=== PATIENT | female | born 1955 | race Caucasian/White ===

== ENCOUNTER → 2017-12-08 | Outpatient (CLI) | payer OTHER ==
[2017-12-08 09:48] LABS: ALANINE AMINOTRANSFERASE 44 U/L (12-78); CHLORIDE 106 mmol/L (98-107); CHOLESTEROL, TOTAL 148 mg/dL (140-239); CREATININE 0.78 mg/dL (0.55-1.02)
[2017-12-08 09:53] LABS: ALBUMIN 3.9 g/dL (3.4-5.0); ALKALINE PHOSPHATASE 89 U/L (45-117); ANION GAP 6 mmol/L (5-15); BILIRUBIN,TOTAL 0.9 mg/dL (0.2-1.0); CALCIUM 9.2 mg/dL (8.5-10.1); CHOL/HDL RATIO 2.3; HDL CHOL % 43 % (28-40); HDL CHOLESTEROL (DIRECT) 64 mg/dL (40-60); TOTAL PROTEIN 7.8 g/dL (6.4-8.2)
[2017-12-08 09:54] LABS: LDL CHOLESTEROL,CALCULATED 53 mg/dL (54-169); LDL/HDL RATIO 0.8 (0.5-3.0); TRIGLYCERIDES 153 mg/dL (50-200); VLDL CHOLESTEROL 31 mg/dL (0-25)
[2017-12-08 10:01] LABS: HEMOGLOBIN A1C 8.5 % (4.2-6.3)
== END | disposition home or self-care (01) ==
LOC: LAB 09:22
PROVIDERS: ATTEND Family Medicine
DX: E11.69 Type 2 diabetes mellitus with other specified complication (principal)
CPT/HCPCS: 36415; 80053; 80061; 82043; 83036

== ENCOUNTER → 2018-02-05 | Outpatient (CLI) | payer OTHER ==
[2018-02-05 10:45] LABS: HEMOGLOBIN A1C 8.7 % (4.2-6.3)
[2018-02-05 13:19] LABS: ALBUMIN 3.8 g/dL (3.4-5.0); CALCIUM 9.1 mg/dL (8.5-10.1); CHLORIDE 106 mmol/L (98-107)
[2018-02-05 13:24] LABS: ALANINE AMINOTRANSFERASE 42 U/L (12-78); ALKALINE PHOSPHATASE 77 U/L (45-117); ANION GAP 9 mmol/L (5-15); BILIRUBIN,TOTAL 0.9 mg/dL (0.2-1.0); CHOL/HDL RATIO 2.8; CHOLESTEROL, TOTAL 167 mg/dL (140-239); CREATININE 0.66 mg/dL (0.55-1.02); HDL CHOL % 36 % (28-40); HDL CHOLESTEROL (DIRECT) 60 mg/dL (40-60); LDL CHOLESTEROL,CALCULATED 71 mg/dL (54-169); LDL/HDL RATIO 1.2 (0.5-3.0); TOTAL PROTEIN 7.9 g/dL (6.4-8.2); TRIGLYCERIDES 180 mg/dL (50-200); VLDL CHOLESTEROL 36 mg/dL (0-25)
== END | disposition home or self-care (01) ==
LOC: LAB 08:50
PROVIDERS: ATTEND Family Medicine
DX: E11.69 Type 2 diabetes mellitus with other specified complication (principal)
CPT/HCPCS: 36415; 80053; 80061; 82043; 83036

== ENCOUNTER → 2018-05-04 | Outpatient (CLI) | payer OTHER ==
[2018-05-04 09:11] LABS: ALANINE AMINOTRANSFERASE 46 U/L (12-78); ALBUMIN 4.1 g/dL (3.4-5.0); ANION GAP 7 mmol/L (5-15); CALCIUM 9.7 mg/dL (8.5-10.1); CHLORIDE 106 mmol/L (98-107); CHOLESTEROL, TOTAL 150 mg/dL (140-239); CREATININE 0.84 mg/dL (0.55-1.02)
[2018-05-04 09:13] LABS: ALKALINE PHOSPHATASE 92 U/L (45-117); BILIRUBIN,TOTAL 0.8 mg/dL (0.2-1.0); CHOL/HDL RATIO 2.5; HDL CHOL % 40 % (28-40); HDL CHOLESTEROL (DIRECT) 60 mg/dL (40-60); LDL CHOLESTEROL,CALCULATED 46 mg/dL (54-169); LDL/HDL RATIO 0.8 (0.5-3.0); TOTAL PROTEIN 8.5 g/dL (6.4-8.2); TRIGLYCERIDES 218 mg/dL (50-200); VLDL CHOLESTEROL 44 mg/dL (0-25)
[2018-05-04 10:39] LABS: HEMOGLOBIN A1C 7.1 % (4.2-6.3)
== END | disposition home or self-care (01) ==
LOC: LAB 08:39
PROVIDERS: ATTEND Family Medicine
DX: E11.69 Type 2 diabetes mellitus with other specified complication (principal)
CPT/HCPCS: 36415; 80053; 80061; 82043; 83036

== ENCOUNTER → 2018-06-29 | Outpatient (CLI) | payer OTHER ==
[~2018-06-29] MED LIST: ATOR10TA9 PO; CELE200C PO; GLIM4TAB2 PO; LISI-167 PO; METF500T17 PO; TIZA4CAP PO; TRAM50TA2 PO
[2018-06-29 10:28] LABS: ANION GAP 7 mmol/L (5-15); CALCIUM 9.6 mg/dL (8.5-10.1); CHLORIDE 106 mmol/L (98-107)
[2018-06-29 10:31] LABS: ALANINE AMINOTRANSFERASE 41 U/L (12-78); ALKALINE PHOSPHATASE 92 U/L (45-117); BILIRUBIN,TOTAL 0.9 mg/dL (0.2-1.0); CHOL/HDL RATIO 2.3; CHOLESTEROL, TOTAL 137 mg/dL (140-239); CREATININE 0.71 mg/dL (0.55-1.02); HDL CHOL % 43 % (28-40); HDL CHOLESTEROL (DIRECT) 59 mg/dL (40-60); LDL CHOLESTEROL,CALCULATED 39 mg/dL (54-169); LDL/HDL RATIO 0.7 (0.5-3.0); TOTAL PROTEIN 8.1 g/dL (6.4-8.2); TRIGLYCERIDES 195 mg/dL (50-200); VLDL CHOLESTEROL 39 mg/dL (0-25)
[2018-06-29 10:33] LABS: HEMOGLOBIN A1C 7.5 % (4.2-6.3)
== END | disposition home or self-care (01) ==
LOC: LAB 09:52
PROVIDERS: ATTEND Family Medicine
DX: E11.69 Type 2 diabetes mellitus with other specified complication (principal)
CPT/HCPCS: 36415; 80053; 80061; 82043; 83036

== ENCOUNTER → 2018-07-04 | Outpatient (CLI) | payer OTHER ==
[2018-07-04 10:23] LABS: MICROSCOPIC NOT IND
[2018-07-04 10:28] LABS: BASOPHILS # (AUTO) 0.03 x10^3/uL (0-0.1); BASOPHILS % (AUTO) 0 % (0-1); EOSINOPHILS % (AUTO) 6 % (1-7); LYMPHOCYTES # (AUTO) 2.09 x10^3/uL (1-3.4); LYMPHOCYTES % (AUTO) 26 % (22-44); MD NO; MEAN CORPUSCULAR HEMOGLOBIN 31.8 pg (27.0-34.8); MEAN CORPUSCULAR HGB CONC 34.3 g/dL (32.4-35.8); MEAN CORPUSCULAR VOLUME 92.6 fL (80-100); MEAN PLATELET VOLUME 7.4 fL (7.4-10.4); MONOCYTES # (AUTO) 0.57 x10^3/uL (0.2-0.8); MONOCYTES % (AUTO) 7 % (2-9); NEUTROPHILS # (AUTO) 4.95 x10^3/uL (1.8-6.8); NEUTROPHILS % (AUTO) 61 % (42-75); PLATELET COUNT 295 x10^3/uL (130-400); RED BLOOD COUNT 5.08 x10^6/uL (3.82-5.3); RED CELL DISTRIBUTION WIDTH 12.4 % (9.6-15.2)
[2018-07-04 10:28] LABS: CULTURE INDICATED? NO
[2018-07-04 10:33] LABS: INTERNATIONAL NORMALIZED RATIO 0.99 (0.93-1.1); PROTHROMBIN TIME 10.4 Seconds (9.6-11.5)
[2018-07-04 10:37] LABS: ALANINE AMINOTRANSFERASE 41 U/L (12-78); ANION GAP 6 mmol/L (5-15); CHLORIDE 103 mmol/L (98-107)
[2018-07-04 10:40] LABS: ALKALINE PHOSPHATASE 94 U/L (45-117); BILIRUBIN,TOTAL 0.9 mg/dL (0.2-1.0); CREATININE 0.72 mg/dL (0.55-1.02)
== END | disposition home or self-care (01) ==
LOC: STAR 08:55
PROVIDERS: ATTEND Orthopaedic Surgery Orthopaedic Surgery of the Spine
DX: Z01.818 Encounter for other preprocedural examination (principal); M48.061 Spinal stenosis, lumbar region without neurogenic claudication
CPT/HCPCS: 36415; 71046; 80053; 81003; 85025; 85610; 85730; 93005

== ENCOUNTER 2018-07-18 06:35 | Inpatient (IN) | payer OTHER ==
[~2018-07-18] VITALS: Ht 170.2 cm; Wt 98.0 kg
[2018-07-18] MEDS ORDERED: LACTATED RINGERS 1,000 ML IV SCH (07:00)
[2018-07-18] MEDS ORDERED: LIDOCAINE-MPF 1%, 2ML INFIL ONE (07:00)
[2018-07-18] MEDS ORDERED: GABAPENTIN 300 MG CAPSULE PO STA (07:01)
[2018-07-18] MEDS ORDERED: SCOPOLAMINE PATCH, 1.5MG PATCH.TD72 TD STA (07:01)
[2018-07-18] MEDS ORDERED: ACETAMINOPHEN 500 MG TABLET PO STA (07:01)
[2018-07-18] MEDS ORDERED: LIDOCAINE-MPF 1%, 2ML ONE (07:06)
[2018-07-18] MEDS ORDERED: MIDAZOLAM 1 MG/ML, 2ML ONE (07:27)
[2018-07-18] MEDS ORDERED: FENTANYL PF 250 MCG/5ML ONE ×3 (07:27→10:14)
[2018-07-18] MEDS ORDERED: PROPOFOL 10 MG/ML, 20ML ONE (07:32)
[2018-07-18] MEDS ORDERED: ONDANSETRON 2MG/ML, 2ML ONE (07:32)
[2018-07-18] MEDS ORDERED: DEXAMETHASONE 4 MG/ML, 1ML ONE (07:32)
[2018-07-18] MEDS ORDERED: CEFAZOLIN 1,000 MG ONE (07:32)
[2018-07-18] MEDS ORDERED: GLYCOPYRROLATE 0.2MG/1ML, 5ML ONE (07:32)
[2018-07-18] MEDS ORDERED: ROCURONIUM 10MG/ML,5ML ONE (07:32)
[2018-07-18] MEDS ORDERED: NEOSTIGMINE 1 MG/ML, 10ML ONE (07:32)
[2018-07-18] MEDS ORDERED: INSULIN REGULAR 100 UNITS/ML, 3ML VIAL IVPush STA (08:09)
[2018-07-18] MEDS ORDERED: MICROFIBRILLAR COLLAGEN 1 GM TP ONE (08:09)
[2018-07-18] MEDS ORDERED: INSULIN SINGLE DOSE, ER SQ-INSULIN ONE ×2 (08:12→09:44)
[2018-07-18] MEDS ORDERED: LIDOCAINE/PF 0.5% ,50ML ONE (08:27)
[2018-07-18] MEDS ORDERED: EPINEPHRINE 1 MG/ML, 1ML ONE (08:27)
[2018-07-18] MEDS ORDERED: THROMBIN 20,000 UNIT VIAL TP ONE (08:27)
[2018-07-18] MEDS ORDERED: BUPIVACAINE/PF 0.25% ONE (08:27)
[2018-07-18] MEDS ORDERED: VANCOMYCIN 500 MG ONE ×2 (08:28→08:38)
[2018-07-18] MEDS ORDERED: VANCOMYCIN 1,000 MG ONE (08:28)
[2018-07-18] MEDS ORDERED: PROMETHAZINE 12.5 MG SUPP PR PRN (08:30)
[2018-07-18] MEDS ORDERED: OXYcodone 5 MG/5 ML ORAL.SOL UDC PO PRN (08:30)
[2018-07-18] MEDS ORDERED: MORPHINE SULFATE 4 MG/ML, 1ML IVPush PRN (08:30)
[2018-07-18] MEDS ORDERED: PROMETHAZINE 25 MG/ML, 1ML IM PRN ×3 (08:30→14:30)
[2018-07-18] MEDS ORDERED: PROMETHAZINE 25 MG SUPP PR PRN (08:30)
[2018-07-18] MEDS ORDERED: ONDANSETRON 2MG/ML, 2ML IV PRN ×2 (08:30→14:30)
[2018-07-18] MEDS ORDERED: PROMETHAZINE 25 MG/ML, 1ML IV PRN (08:30)
[2018-07-18] MEDS ORDERED: hydrALAzine 20 MG/ML, 1ML IV PRN (08:30)
[2018-07-18] MEDS ORDERED: ONDANSETRON ODT 8 MG PO PRN (08:30)
[2018-07-18] MEDS ORDERED: LABETALOL 5MG/ML, 20ML IV PRN (08:30)
[2018-07-18] MEDS ORDERED: MEPERIDINE/PF 25MG/0.5ML IVPush PRN (08:30)
[2018-07-18] MEDS ORDERED: PHENYLEPHRINE 10 MG/ML ONE (08:54)
[2018-07-18] MEDS: FENTANYL PF 100 MCG/2ML IV PRN ×3 (12:19→13:06)
[2018-07-18] MEDS: HYDROmorphone 2 MG/ML, 1ML IVPush PRN ×2 (12:19→12:36)
[2018-07-18] MEDS ORDERED: HYDROmorphone 1 MG/ML, 1ML VIAL ONE (12:21)
[2018-07-18] MEDS ORDERED: FENTANYL PF 100 MCG/2ML ONE (12:21)
[2018-07-18] MEDS ORDERED: OXYcodone 5 MG/5 ML ORAL.SOL UDC ONE (12:21)
[2018-07-18] MEDS ORDERED: METHOCARBAMOL 1,000 MG in DEXTROSE 5% 100 ML IV ONE ×2 (12:30→14:30)
[2018-07-18] MEDS ORDERED: morphine SULFATE 10 MG/ML, 1ML ONE (12:51)
[2018-07-18] MEDS ORDERED: INSULIN REGULAR 100 UNITS/ML, 3ML VIAL SQ-INSULIN ONE (13:00)
[2018-07-18] MEDS ORDERED: MAGNESIUM HYDROXIDE 8%, 30ML UDC PO PRN (14:30)
[2018-07-18] MEDS ORDERED: BISACODYL 10 MG SUPP PR PRN (14:30)
[2018-07-18] MEDS ORDERED: morphine SULFATE 10 MG/ML, 1ML IV PRN (14:30)
[2018-07-18] MEDS ORDERED: METHOCARBAMOL 750 MG TABLET PO PRN (14:30)
[2018-07-18] MEDS ORDERED: HYDROcodone/APAP 5/325 TABLET PO PRN (14:30)
[2018-07-18] MEDS ORDERED: TIZANIDINE 4MG TABLET PO PRN (14:30)
[2018-07-18] MEDS: NS + 20MEQ KCL 1,000 ML IV SCH (17:44)
[2018-07-18] MEDS: CEFAZOLIN PMX 1GM/50ML 50 ML IVPB SCH (17:44)
[2018-07-18] MEDS: metFORMIN 500 MG TABLET PO SCH (17:45)
[2018-07-18] MEDS ORDERED: GLUCAGON 1 MG IM PRN (19:30)
[2018-07-18] MEDS ORDERED: DEXTROSE 50%, 50ML SYRINGE IVPush PRN (19:30)
[2018-07-18] MEDS ORDERED: DEXTROSE 4 GM TAB.CHEW PO PRN (19:30)
[2018-07-18] MEDS ORDERED: GLIMEPIRIDE 4 MG TABLET PO SCH (21:00)
[2018-07-18] MEDS: SODIUM CHLORIDE FLUSH 10ML SYR IVF SCH (21:00)
[2018-07-18 21:55] VITALS: BP 144/86
[2018-07-18] MEDS: METHOCARBAMOL 750 MG in DEXTROSE 5% 100 ML IV SCH (23:12)
[2018-07-18] MEDS: SENNA/DOCUSATE TABLET PO SCH (23:14)
[2018-07-18] MEDS: INSULIN LISPRO 100 UNITS/ML, PEN SQ-INSULIN SCH (23:14)
[2018-07-18] MEDS: ATORVASTATIN 10 MG TABLET PO SCH (23:14)
[2018-07-19] MEDS ORDERED: METHOCARBAMOL 750 MG in DEXTROSE 5% 100 ML IV SCH (00:30)
[2018-07-19] MEDS: CEFAZOLIN PMX 1GM/50ML 50 ML IVPB SCH (01:35)
[2018-07-19 01:40] VITALS: BP 144/68
[2018-07-19 05:20] VITALS: BP 140/79
[2018-07-19] MEDS: NS + 20MEQ KCL 1,000 ML IV SCH ×2 (05:29→15:16)
[2018-07-19 06:18] LABS: BASOPHILS # (AUTO) 0.04 x10^3/uL (0-0.1); BASOPHILS % (AUTO) 0 % (0-1); EOSINOPHILS # (AUTO) 0.05 x10^3/uL (0-0.4); EOSINOPHILS % (AUTO) 0 % (1-7); LYMPHOCYTES # (AUTO) 2.01 x10^3/uL (1-3.4); LYMPHOCYTES % (AUTO) 18 % (22-44); MD NO; MEAN CORPUSCULAR HEMOGLOBIN 31.8 pg (27.0-34.8); MEAN CORPUSCULAR HGB CONC 34.7 g/dL (32.4-35.8); MEAN CORPUSCULAR VOLUME 91.6 fL (80-100); MONOCYTES % (AUTO) 8 % (2-9); NEUTROPHILS # (AUTO) 8.43 x10^3/uL (1.8-6.8); NEUTROPHILS % (AUTO) 74 % (42-75); PLATELET COUNT 284 x10^3/uL (130-400); RED BLOOD COUNT 4.32 x10^6/uL (3.82-5.3); RED CELL DISTRIBUTION WIDTH 12.7 % (9.6-15.2)
[2018-07-19] MEDS: METHOCARBAMOL 750 MG in DEXTROSE 5% 100 ML IV SCH ×3 (06:31→23:16)
[2018-07-19 06:42] LABS: CHLORIDE 107 mmol/L (98-107)
[2018-07-19 06:47] LABS: ALANINE AMINOTRANSFERASE 35 U/L (12-78); ALBUMIN 3.4 g/dL (3.4-5.0); ALKALINE PHOSPHATASE 70 U/L (45-117); ANION GAP 8 mmol/L (5-15); BILIRUBIN,TOTAL 1.1 mg/dL (0.2-1.0); CALCIUM 8.6 mg/dL (8.5-10.1); CREATININE 0.61 mg/dL (0.55-1.02); TOTAL PROTEIN 6.9 g/dL (6.4-8.2)
[2018-07-19] MEDS: INSULIN LISPRO 100 UNITS/ML, PEN SQ-INSULIN SCH ×4 (07:47→20:58)
[2018-07-19] MEDS: metFORMIN 500 MG TABLET PO SCH ×2 (07:47→16:29)
[2018-07-19] MEDS: SODIUM CHLORIDE FLUSH 10ML SYR IVF SCH ×2 (08:18→21:00)
[2018-07-19] MEDS: SENNA/DOCUSATE TABLET PO SCH ×2 (08:18→20:57)
[2018-07-19] MEDS: LISINOPRIL 10 MG TABLET PO SCH (08:18)
[2018-07-19] MEDS ORDERED: LISINOPRIL 10 MG TABLET PO SCH (09:00)
[2018-07-19 09:34] VITALS: BP 133/68
[2018-07-19] MEDS: HYDROcodone/APAP 10/325 MG TABLET PO PRN ×3 (10:55→16:28)
[2018-07-19 13:49] VITALS: BP 117/58
[2018-07-19 19:45] VITALS: BP 133/67
[2018-07-19] MEDS: ATORVASTATIN 10 MG TABLET PO SCH (20:57)
[2018-07-19] MEDS: GLIMEPIRIDE 4 MG TABLET PO SCH (20:57)
[2018-07-20 00:59] VITALS: BP 129/78
[2018-07-20] MEDS: NS + 20MEQ KCL 1,000 ML IV SCH (01:24)
[2018-07-20 05:21] LABS: BASOPHILS # (AUTO) 0.03 x10^3/uL (0-0.1); BASOPHILS % (AUTO) 0 % (0-1); EOSINOPHILS # (AUTO) 0.03 x10^3/uL (0-0.4); EOSINOPHILS % (AUTO) 0 % (1-7); LYMPHOCYTES # (AUTO) 1.67 x10^3/uL (1-3.4); LYMPHOCYTES % (AUTO) 15 % (22-44); MD NO; MEAN CORPUSCULAR HEMOGLOBIN 31.6 pg (27.0-34.8); MEAN CORPUSCULAR HGB CONC 34.3 g/dL (32.4-35.8); MEAN CORPUSCULAR VOLUME 92.2 fL (80-100); MEAN PLATELET VOLUME 6.9 fL (7.4-10.4); MONOCYTES % (AUTO) 8 % (2-9); NEUTROPHILS # (AUTO) 8.63 x10^3/uL (1.8-6.8); NEUTROPHILS % (AUTO) 77 % (42-75); PLATELET COUNT 240 x10^3/uL (130-400); RED BLOOD COUNT 4.11 x10^6/uL (3.82-5.3); RED CELL DISTRIBUTION WIDTH 12.8 % (9.6-15.2)
[2018-07-20 05:28] LABS: CHLORIDE 105 mmol/L (98-107)
[2018-07-20 05:37] LABS: ANION GAP 6 mmol/L (5-15); CALCIUM 8.6 mg/dL (8.5-10.1); CREATININE 0.52 mg/dL (0.55-1.02)
[2018-07-20] MEDS: METHOCARBAMOL 750 MG in DEXTROSE 5% 100 ML IV SCH (06:20)
[2018-07-20] MEDS: SODIUM CHLORIDE FLUSH 10ML SYR IVF SCH (07:53)
[2018-07-20] MEDS: INSULIN LISPRO 100 UNITS/ML, PEN SQ-INSULIN SCH ×2 (07:53→11:16)
[2018-07-20] MEDS: GLIMEPIRIDE 4 MG TABLET PO SCH (07:53)
[2018-07-20] MEDS: LISINOPRIL 10 MG TABLET PO SCH (07:53)
[2018-07-20] MEDS: metFORMIN 500 MG TABLET PO SCH (07:53)
[2018-07-20] MEDS: SENNA/DOCUSATE TABLET PO SCH (07:53)
[2018-07-20 07:55] VITALS: BP 145/70
[2018-07-20 10:54] VITALS: BP 91/53
[2018-07-20] MEDS: HYDROcodone/APAP 10/325 MG TABLET PO PRN (11:15)
[2018-07-20] MEDS ORDERED: METH750T87 PO (13:23)
[2018-07-20] MEDS ORDERED: DOCU-131 PO (13:23)
[2018-07-20] MEDS ORDERED: HYDR-3307 PO (13:24)
[2018-07-21] MEDS ORDERED: METHOCARBAMOL 750 MG TABLET PO SCH (08:00)
== END 2018-07-20 14:53 | DRG 460 ==
LOC: ORIP 06:35 → 4NOR 14:07
PROVIDERS: ADMIT Orthopaedic Surgery Orthopaedic Surgery of the Spine; ATTEND Orthopaedic Surgery Orthopaedic Surgery of the Spine
PROC: 0SR20JZ Replacement of Lumbar Vertebral Disc with Synthetic Substitute, Open Approach (ICD-10-PCS; 2018-07-18)
PROC: 4A11X4G Monitoring of Peripheral Nervous Electrical Activity, Intraoperative, External Approach (ICD-10-PCS; 2018-07-18)
PROC: 0SG10A0 Fusion of 2 or more Lumbar Vertebral Joints with Interbody Fusion Device, Anterior Approach, Anterior Column, Open Approach (ICD-10-PCS; principal; 2018-07-18 08:30)
DX: M48.061 Spinal stenosis, lumbar region without neurogenic claudication (principal); M43.16 Spondylolisthesis, lumbar region; E78.5 Hyperlipidemia, unspecified; E11.42 Type 2 diabetes mellitus with diabetic polyneuropathy; G89.29 Other chronic pain; I10 Essential (primary) hypertension; M41.9 Scoliosis, unspecified; Z90.49 Acquired absence of other specified parts of digestive tract
CPT/HCPCS: 36415; 72100; J3490; 80048; 80053; 82962; 85025; 86850; 86900; C1713; G0378; J0171; J0690; J1100; J1170; J1815; J2001; J2250; J2270; J2405; J2704; J2710; J3010; J3370; J3480; C1762; J2370; J2800; J7120

== ENCOUNTER 2018-07-25 07:11 | Inpatient (IN) | payer OTHER ==
[~2018-07-25] VITALS: Ht 170.2 cm; Wt 99.0 kg
[~2018-07-25 07:11] MED LIST changes: +DEXAMETHASONE 4 MG/ML, 1ML IV SCH; +DOCU-131 PO; +HYDR-3307 PO; +METH750T87 PO
--- NOTE | 2018-07-25 07:11 | NUR ---
ASHLEY from [facility] c/o incr RLE pain x2 days, recent back surg, NPO (no meds/food) for 2nd surg sched today ([facility]) since 2199 last night; arrived with dressing to left lower torso dated 07/24/18 & FC ("inserted 07/24/18 for retention"), EMS admin 100mcg fentanyl via PIV; pt changed into gown, responds approp to staff, NAD at rest, comfort measures provided, call light within reach.
[2018-07-25] MEDS ORDERED: ONDANSETRON 2MG/ML, 2ML IVPush ONE (07:30)
[2018-07-25] MEDS ORDERED: MORPHINE SULFATE 4 MG/ML, 1ML IVPush PRN (07:30)
--- NOTE | 2018-07-25 07:30 | NUR ---
[facility] for dr rothman
[2018-07-25] MEDS ORDERED: ONDANSETRON 2MG/ML, 2ML ONE (07:38)
[2018-07-25] MEDS ORDERED: MORPHINE SULFATE 4 MG/ML, 1ML ONE (07:38)
[2018-07-25] MEDS ORDERED: INSU100I42 SQ (08:01)
--- NOTE | 2018-07-25 08:03 | NUR ---
pt laying on gurney awake & more comfortable, responds approp to staff, NAD at rest, comfort measures provided, call light within reach, pt to XR.
--- NOTE | 2018-07-25 08:14 | NUR ---
pt returned from XR
--- NOTE | 2018-07-25 09:11 | NUR ---
pt returned from US, continues laying on gurney with eyes closed, responds approp to staff, NAD at rest, comfort measures provided, call light within reach.
[2018-07-25 09:30] LABS: BASOPHILS # (AUTO) 0.03 x10^3/uL (0-0.1); BASOPHILS % (AUTO) 0 % (0-1); EOSINOPHILS # (AUTO) 0.17 x10^3/uL (0-0.4); EOSINOPHILS % (AUTO) 2 % (1-7); LYMPHOCYTES # (AUTO) 1.43 x10^3/uL (1-3.4); LYMPHOCYTES % (AUTO) 14 % (22-44); MD NO; MEAN CORPUSCULAR HGB CONC 33.9 g/dL (32.4-35.8); MEAN CORPUSCULAR VOLUME 91.3 fL (80-100); MEAN PLATELET VOLUME 6.2 fL (7.4-10.4); MONOCYTES # (AUTO) 0.47 x10^3/uL (0.2-0.8); MONOCYTES % (AUTO) 5 % (2-9); NEUTROPHILS # (AUTO) 7.89 x10^3/uL (1.8-6.8); NEUTROPHILS % (AUTO) 79 % (42-75); PLATELET COUNT 384 x10^3/uL (130-400); RED CELL DISTRIBUTION WIDTH 12.3 % (9.6-15.2)
[2018-07-25 09:39] LABS: MICROSCOPIC AUTO
[2018-07-25 09:40] LABS: ANION GAP 9 mmol/L (5-15); CHLORIDE 102 mmol/L (98-107); CREATININE 0.34 mg/dL (0.55-1.02)
[2018-07-25 09:43] LABS: CULTURE INDICATED? YES
--- NOTE | 2018-07-25 10:01 | NUR ---
pt laying on gurney awake with c/o discomfort (improved with repositioning), responds approp to staff, NAD at rest, comfort measures provided, call light within reach.
--- NOTE | 2018-07-25 10:36 | NUR ---
Pt to be admitted to medical, room 349. Report called to Cami.
[2018-07-25 11:15] VITALS: BP 145/79
[2018-07-25] MEDS ORDERED: ONDANSETRON ODT 4 MG PO PRN (12:00)
[2018-07-25] MEDS: INSULIN LISPRO 100 UNITS/ML, PEN SQ-INSULIN SCH ×3 (12:00→20:38)
[2018-07-25] MEDS ORDERED: METHOCARBAMOL 500 MG TABLET PO PRN (12:00)
[2018-07-25] MEDS ORDERED: POTASSIUM CHLORIDE 20 MEQ TAB.ER.PRT PO ONE (12:00)
[2018-07-25] MEDS ORDERED: ACETAMINOPHEN 325 MG TABLET PO PRN (12:00)
[2018-07-25] MEDS ORDERED: TIZANIDINE 4MG TABLET PO PRN (12:00)
[2018-07-25] MEDS ORDERED: ONDANSETRON 2MG/ML, 2ML IVPush PRN (12:00)
[2018-07-25] MEDS: morphine SULFATE 10 MG/ML, 1ML IVPush PRN ×3 (12:41→20:29)
[2018-07-25] MEDS: SODIUM CHLORIDE 0.9% 1,000 ML IV SCH (12:42)
[2018-07-25 13:10] LABS: HCT (SEDRATE) 40.2 % (34.6-47.8)
[2018-07-25] MEDS ORDERED: SENNA/DOCUSATE TABLET PO PRN (14:00)
[2018-07-25] MEDS: CEFTRIAXONE PMX 1GM/50ML 50 ML IV SCH (14:36)
[2018-07-25 15:37] VITALS: BP 136/82
[2018-07-25] MEDS: DOCUSATE 100 MG CAPSULE PO SCH ×2 (16:00→20:18)
[2018-07-25] MEDS: METHOCARBAMOL 750 MG in DEXTROSE 5% 100 ML IV SCH (16:08)
[2018-07-25] MEDS: DEXAMETHASONE 4 MG/ML, 1ML IV SCH ×2 (16:19→20:29)
[2018-07-25 20:00] VITALS: BP 145/74
[2018-07-25] MEDS: ATORVASTATIN 10 MG TABLET PO SCH (20:29)
[2018-07-26] MEDS: METHOCARBAMOL 750 MG in DEXTROSE 5% 100 ML IV SCH (00:49)
[2018-07-26] MEDS: SODIUM CHLORIDE 0.9% 1,000 ML IV SCH ×2 (00:49→16:05)
[2018-07-26 02:00] VITALS: BP 142/85
[2018-07-26] MEDS: morphine SULFATE 10 MG/ML, 1ML IVPush PRN ×3 (03:02→23:53)
[2018-07-26] MEDS: DEXAMETHASONE 4 MG/ML, 1ML IV SCH ×4 (04:28→21:09)
[2018-07-26 05:55] LABS: BASOPHILS # (AUTO) 0.01 x10^3/uL (0-0.1); BASOPHILS % (AUTO) 0 % (0-1); EOSINOPHILS % (AUTO) 0 % (1-7); LYMPHOCYTES # (AUTO) 0.75 x10^3/uL (1-3.4); LYMPHOCYTES % (AUTO) 8 % (22-44); MD NO; MEAN CORPUSCULAR HEMOGLOBIN 31.4 pg (27.0-34.8); MEAN CORPUSCULAR HGB CONC 34.1 g/dL (32.4-35.8); MEAN PLATELET VOLUME 6.5 fL (7.4-10.4); MONOCYTES # (AUTO) 0.15 x10^3/uL (0.2-0.8); MONOCYTES % (AUTO) 2 % (2-9); NEUTROPHILS # (AUTO) 8.65 x10^3/uL (1.8-6.8); NEUTROPHILS % (AUTO) 91 % (42-75); PLATELET COUNT 444 x10^3/uL (130-400); RED BLOOD COUNT 4.33 x10^6/uL (3.82-5.3); RED CELL DISTRIBUTION WIDTH 12.2 % (9.6-15.2)
[2018-07-26 06:03] LABS: ALBUMIN 2.9 g/dL (3.4-5.0); ANION GAP 9 mmol/L (5-15); CALCIUM 9.1 mg/dL (8.5-10.1); CHLORIDE 105 mmol/L (98-107)
[2018-07-26 06:08] LABS: ALANINE AMINOTRANSFERASE 23 U/L (12-78); ALKALINE PHOSPHATASE 81 U/L (45-117); BILIRUBIN,TOTAL 0.6 mg/dL (0.2-1.0); CREATININE 0.35 mg/dL (0.55-1.02); TOTAL PROTEIN 7.2 g/dL (6.4-8.2)
[2018-07-26 07:03] VITALS: BP 164/93
[2018-07-26] MEDS ORDERED: DEXTROSE 4 GM TAB.CHEW PO PRN (07:30)
[2018-07-26] MEDS ORDERED: GLUCAGON 1 MG IM PRN (07:30)
[2018-07-26] MEDS ORDERED: DEXTROSE 50%, 50ML SYRINGE IVPush PRN (07:30)
[2018-07-26] MEDS: LISINOPRIL 10 MG TABLET PO SCH (08:39)
[2018-07-26] MEDS: DOCUSATE 100 MG CAPSULE PO SCH ×3 (08:39→21:00)
[2018-07-26] MEDS: SODIUM CHLORIDE FLUSH 10ML SYR IVF SCH ×2 (08:39→21:09)
[2018-07-26] MEDS: INSULIN LISPRO 100 UNITS/ML, PEN SQ-INSULIN SCH ×4 (08:48→21:14)
[2018-07-26] MEDS: CEFTRIAXONE PMX 1GM/50ML 50 ML IV SCH (12:53)
[2018-07-26 14:59] VITALS: BP 138/90
[2018-07-26 19:12] VITALS: BP 146/85
[2018-07-26] MEDS: ATORVASTATIN 10 MG TABLET PO SCH (21:09)
[2018-07-26] MEDS: OXYcodone IR 5MG TABLET PO PRN (21:17)
[2018-07-27 02:56] VITALS: BP 139/81
[2018-07-27 05:12] LABS: ALBUMIN 2.8 g/dL (3.4-5.0); ANION GAP 6 mmol/L (5-15); CALCIUM 8.8 mg/dL (8.5-10.1); CHLORIDE 104 mmol/L (98-107); CREATININE 0.49 mg/dL (0.55-1.02)
[2018-07-27] MEDS: SODIUM CHLORIDE 0.9% 1,000 ML IV SCH ×2 (05:43→18:41)
[2018-07-27] MEDS: LISINOPRIL 10 MG TABLET PO SCH (08:00)
[2018-07-27] MEDS: SODIUM CHLORIDE FLUSH 10ML SYR IVF SCH ×2 (08:01→20:29)
[2018-07-27] MEDS: DOCUSATE 100 MG CAPSULE PO SCH ×3 (08:03→20:29)
[2018-07-27] MEDS: INSULIN LISPRO 100 UNITS/ML, PEN SQ-INSULIN SCH ×4 (08:07→20:40)
[2018-07-27 08:13] VITALS: BP 137/82
[2018-07-27] MEDS: OXYcodone IR 5MG TABLET PO PRN ×2 (08:20→16:23)
[2018-07-27] MEDS ORDERED: GABAPENTIN 100 MG CAPSULE PO PRN (09:00)
[2018-07-27] MEDS ORDERED: TIZANIDINE 4MG TABLET PO PRN (09:00)
[2018-07-27] MEDS: CEFTRIAXONE PMX 1GM/50ML 50 ML IV SCH (11:45)
[2018-07-27] MEDS: METHOCARBAMOL 500 MG TABLET PO PRN (14:59)
[2018-07-27 15:49] VITALS: BP 142/81
[2018-07-27] MEDS: morphine SULFATE 10 MG/ML, 1ML IVPush PRN ×2 (16:54→20:28)
[2018-07-27 20:10] VITALS: BP 152/84
[2018-07-27] MEDS: ATORVASTATIN 10 MG TABLET PO SCH (20:29)
[2018-07-28 00:35] VITALS: BP 126/76
[2018-07-28] MEDS: morphine SULFATE 10 MG/ML, 1ML IVPush PRN ×4 (00:36→07:47)
[2018-07-28] MEDS: METHOCARBAMOL 500 MG TABLET PO PRN ×2 (02:38→20:07)
[2018-07-28] MEDS: OXYcodone IR 5MG TABLET PO PRN (06:41)
[2018-07-28] MEDS: DOCUSATE 100 MG CAPSULE PO SCH ×3 (07:47→20:06)
[2018-07-28] MEDS: LISINOPRIL 10 MG TABLET PO SCH (07:47)
[2018-07-28] MEDS: SODIUM CHLORIDE FLUSH 10ML SYR IVF SCH ×2 (07:51→20:07)
[2018-07-28] MEDS: INSULIN LISPRO 100 UNITS/ML, PEN SQ-INSULIN SCH ×4 (07:51→20:33)
[2018-07-28] MEDS: SODIUM CHLORIDE 0.9% 1,000 ML IV SCH (07:51)
[2018-07-28 08:21] VITALS: BP 143/84
[2018-07-28] MEDS: HYDROmorphone 2MG TABLET PO PRN ×4 (12:16→20:43)
[2018-07-28] MEDS: CEFTRIAXONE PMX 1GM/50ML 50 ML IV SCH (12:18)
[2018-07-28 14:54] VITALS: BP 144/83
[2018-07-28 18:40] VITALS: BP 163/90
[2018-07-28] MEDS: ATORVASTATIN 10 MG TABLET PO SCH (20:07)
[2018-07-29] MEDS: HYDROmorphone 2MG TABLET PO PRN ×4 (01:00→15:26)
[2018-07-29 01:31] VITALS: BP 149/76
[2018-07-29 04:52] LABS: BASOPHILS # (AUTO) 0.04 x10^3/uL (0-0.1); BASOPHILS % (AUTO) 1 % (0-1); EOSINOPHILS # (AUTO) 0.16 x10^3/uL (0-0.4); EOSINOPHILS % (AUTO) 2 % (1-7); LYMPHOCYTES # (AUTO) 2.62 x10^3/uL (1-3.4); LYMPHOCYTES % (AUTO) 30 % (22-44); MD NO; MEAN CORPUSCULAR HEMOGLOBIN 30.8 pg (27.0-34.8); MEAN CORPUSCULAR HGB CONC 33.5 g/dL (32.4-35.8); MEAN CORPUSCULAR VOLUME 91.9 fL (80-100); MEAN PLATELET VOLUME 6.3 fL (7.4-10.4); MONOCYTES # (AUTO) 0.55 x10^3/uL (0.2-0.8); MONOCYTES % (AUTO) 6 % (2-9); NEUTROPHILS # (AUTO) 5.26 x10^3/uL (1.8-6.8); NEUTROPHILS % (AUTO) 61 % (42-75); PLATELET COUNT 467 x10^3/uL (130-400); RED BLOOD COUNT 4.47 x10^6/uL (3.82-5.3); RED CELL DISTRIBUTION WIDTH 12.6 % (9.6-15.2)
[2018-07-29 05:02] LABS: ALANINE AMINOTRANSFERASE 41 U/L (12-78); ANION GAP 8 mmol/L (5-15); CALCIUM 8.9 mg/dL (8.5-10.1); CHLORIDE 102 mmol/L (98-107); CREATININE 0.42 mg/dL (0.55-1.02)
[2018-07-29 05:04] LABS: ALKALINE PHOSPHATASE 129 U/L (45-117); BILIRUBIN,TOTAL 0.7 mg/dL (0.2-1.0); TOTAL PROTEIN 6.7 g/dL (6.4-8.2)
[2018-07-29] MEDS: METHOCARBAMOL 500 MG TABLET PO PRN ×2 (05:05→15:26)
[2018-07-29 07:38] VITALS: BP 143/83
[2018-07-29] MEDS: INSULIN LISPRO 100 UNITS/ML, PEN SQ-INSULIN SCH ×2 (08:39→12:03)
[2018-07-29] MEDS: DOCUSATE 100 MG CAPSULE PO SCH (08:40)
[2018-07-29] MEDS: LISINOPRIL 10 MG TABLET PO SCH (08:40)
[2018-07-29] MEDS: SODIUM CHLORIDE FLUSH 10ML SYR IVF SCH (08:41)
[2018-07-29] MEDS ORDERED: CEFD300C37 PO (12:42)
[2018-07-29] MEDS: CEFTRIAXONE PMX 1GM/50ML 50 ML IV SCH (12:57)
[2018-07-29] MEDS ORDERED: POTASSIUM CHLORIDE 20 MEQ TAB.ER.PRT PO ONE ×2 (13:00→15:00)
[2018-07-29 14:35] VITALS: BP 139/78
== END 2018-07-29 16:28 | disposition home or self-care (01) | DRG 552 ==
LOC: ED 07:35 → EDIP 07:41 → 3NW 10:34
PROVIDERS: ADMIT Internal Medicine; ATTEND Internal Medicine
PROC: 0T9B70Z Drainage of Bladder with Drainage Device, Via Natural or Artificial Opening (ICD-10-PCS; principal; 2018-07-25)
DX: M54.5 Low back pain (principal); N39.0 Urinary tract infection, site not specified; E78.5 Hyperlipidemia, unspecified; E87.6 Hypokalemia; E11.42 Type 2 diabetes mellitus with diabetic polyneuropathy; G89.29 Other chronic pain; I10 Essential (primary) hypertension; Z79.84 Long term (current) use of oral hypoglycemic drugs; Z79.899 Other long term (current) drug therapy
CPT/HCPCS: 36415; 72100; 80048; 80053; 81001; 82040; 82962; 83735; 85025; 85651; 87040; 87077; 87086; 87186; 96374; 96375; 99285; G0378; J0696; J1100; J2405; J1815; J2270; J2800; J7030

== ENCOUNTER 2018-08-01 11:25 | Inpatient (IN) | payer OTHER ==
[~2018-08-01] VITALS: Ht 170.2 cm; Wt 91.9 kg
[~2018-08-01 11:25] MED LIST changes: +CEFD300C37 PO; -DEXAMETHASONE 4 MG/ML, 1ML IV SCH; +INSU100I42 SQ
[2018-08-01] MEDS ORDERED: HYDROmorphone 2 MG/ML, 1ML IVPush PRN (12:00)
[2018-08-01] MEDS ORDERED: METHOCARBAMOL 1,000 MG in DEXTROSE 5% 100 ML IV ONE (12:00)
[2018-08-01] MEDS ORDERED: HYDROmorphone 2 MG/ML, 1ML ONE (12:01)
[2018-08-01] MEDS ORDERED: HYDR2TAB29 PO (12:34)
[2018-08-01 12:50] LABS: BASOPHILS # (AUTO) 0.06 x10^3/uL (0-0.1); BASOPHILS % (AUTO) 0 % (0-1); EOSINOPHILS # (AUTO) 0.16 x10^3/uL (0-0.4); EOSINOPHILS % (AUTO) 1 % (1-7); LYMPHOCYTES # (AUTO) 2.31 x10^3/uL (1-3.4); LYMPHOCYTES % (AUTO) 15 % (22-44); MD NO; MEAN CORPUSCULAR HEMOGLOBIN 31.3 pg (27.0-34.8); MEAN CORPUSCULAR HGB CONC 34.2 g/dL (32.4-35.8); MEAN CORPUSCULAR VOLUME 91.6 fL (80-100); MEAN PLATELET VOLUME 6.6 fL (7.4-10.4); MONOCYTES # (AUTO) 0.94 x10^3/uL (0.2-0.8); MONOCYTES % (AUTO) 6 % (2-9); NEUTROPHILS # (AUTO) 11.67 x10^3/uL (1.8-6.8); NEUTROPHILS % (AUTO) 77 % (42-75); PLATELET COUNT 517 x10^3/uL (130-400); RED CELL DISTRIBUTION WIDTH 12.9 % (9.6-15.2)
[2018-08-01 12:52] LABS: ALANINE AMINOTRANSFERASE 25 U/L (12-78); ALBUMIN 3.3 g/dL (3.4-5.0); ANION GAP 5 mmol/L (5-15); CALCIUM 9.1 mg/dL (8.5-10.1); CHLORIDE 104 mmol/L (98-107); CREATININE 0.49 mg/dL (0.55-1.02)
[2018-08-01 12:59] LABS: ALKALINE PHOSPHATASE 223 U/L (45-117); BILIRUBIN,TOTAL 0.7 mg/dL (0.2-1.0); HIGH-SENSITIVITY CRP 0.98 mg/dL (0.02-0.30); TOTAL PROTEIN 7.2 g/dL (6.4-8.2)
[2018-08-01] MEDS ORDERED: POLYETHYLENE GLYCOL 17 GM PACKET PO PRN (13:00)
[2018-08-01] MEDS ORDERED: HYDROmorphone 1 MG/ML, 1ML INJ IVPush PRN (13:00)
[2018-08-01] MEDS ORDERED: LABETALOL 5MG/ML, 20ML IVPush PRN (13:00)
[2018-08-01] MEDS: METHOCARBAMOL 500 MG TABLET PO SCH ×3 (13:00→20:36)
[2018-08-01] MEDS ORDERED: ONDANSETRON 2MG/ML, 2ML IVPush PRN (13:00)
[2018-08-01] MEDS ORDERED: ONDANSETRON ODT 4 MG PO PRN (13:00)
[2018-08-01 13:16] LABS: HCT (SEDRATE) 44.9 % (34.6-47.8)
[2018-08-01] MEDS: HYDROmorphone 2 MG/ML, 1ML IVPush PRN ×2 (14:41→20:35)
[2018-08-01 15:06] VITALS: BP 141/85
[2018-08-01 15:17] VITALS: BP 141/85
[2018-08-01] MEDS: PANTOPROZOLE 40MG TABLET PO SCH (16:36)
[2018-08-01] MEDS ORDERED: GADOBUTROL 10 MMOL/10 ML PFS ONE (19:39)
[2018-08-01] MEDS: CEFDINIR 300 MG CAPSULE PO SCH (20:36)
[2018-08-01] MEDS: metFORMIN 500 MG TABLET PO SCH (20:36)
[2018-08-01] MEDS: ATORVASTATIN 10 MG TABLET PO SCH (20:36)
[2018-08-01 21:26] VITALS: BP 120/81
[2018-08-02 00:50] VITALS: BP 134/80
[2018-08-02] MEDS: HYDROmorphone 2 MG/ML, 1ML IVPush PRN ×2 (02:48→09:22)
[2018-08-02] MEDS: PANTOPROZOLE 40MG TABLET PO SCH (06:06)
[2018-08-02] MEDS: METHOCARBAMOL 500 MG TABLET PO SCH ×4 (06:06→20:14)
[2018-08-02 07:49] VITALS: BP 135/90
[2018-08-02] MEDS: metFORMIN 500 MG TABLET PO SCH ×2 (08:03→20:14)
[2018-08-02] MEDS: CEFDINIR 300 MG CAPSULE PO SCH ×2 (08:03→20:14)
[2018-08-02] MEDS: SENNA/DOCUSATE TABLET PO SCH (08:03)
[2018-08-02] MEDS: LISINOPRIL 10 MG TABLET PO SCH (08:04)
[2018-08-02] MEDS ORDERED: DIAZEPAM 2 MG TABLET PO PRN (09:30)
[2018-08-02 09:55] LABS: BASOPHILS # (AUTO) 0.06 x10^3/uL (0-0.1); BASOPHILS % (AUTO) 1 % (0-1); EOSINOPHILS # (AUTO) 0.19 x10^3/uL (0-0.4); EOSINOPHILS % (AUTO) 2 % (1-7); LYMPHOCYTES # (AUTO) 2.29 x10^3/uL (1-3.4); LYMPHOCYTES % (AUTO) 19 % (22-44); MD NO; MEAN CORPUSCULAR HEMOGLOBIN 30.8 pg (27.0-34.8); MEAN CORPUSCULAR HGB CONC 33.9 g/dL (32.4-35.8); MEAN PLATELET VOLUME 7.2 fL (7.4-10.4); MONOCYTES # (AUTO) 0.78 x10^3/uL (0.2-0.8); MONOCYTES % (AUTO) 6 % (2-9); NEUTROPHILS # (AUTO) 8.99 x10^3/uL (1.8-6.8); NEUTROPHILS % (AUTO) 73 % (42-75); PLATELET COUNT 511 x10^3/uL (130-400); RED BLOOD COUNT 4.88 x10^6/uL (3.82-5.3); RED CELL DISTRIBUTION WIDTH 13.2 % (9.6-15.2)
[2018-08-02 10:06] LABS: ANION GAP 9 mmol/L (5-15); CALCIUM 9.2 mg/dL (8.5-10.1); CHLORIDE 103 mmol/L (98-107)
[2018-08-02] MEDS ORDERED: DIAZEPAM 5 MG TABLET ONE (10:28)
[2018-08-02] MEDS: DEXAMETHASONE 4 MG/ML, 1ML IVPush SCH ×3 (10:31→20:15)
[2018-08-02 13:40] VITALS: BP 107/66
[2018-08-02] MEDS: TAMSULOSIN 0.4 MG CAP.ER.24H PO SCH (16:00)
[2018-08-02] MEDS: ATORVASTATIN 10 MG TABLET PO SCH (20:15)
[2018-08-02 20:35] VITALS: BP 117/79
[2018-08-03 00:45] VITALS: BP 130/83
[2018-08-03 05:59] LABS: BASOPHILS # (AUTO) 0.05 x10^3/uL (0-0.1); BASOPHILS % (AUTO) 0 % (0-1); EOSINOPHILS # (AUTO) 0.04 x10^3/uL (0-0.4); EOSINOPHILS % (AUTO) 0 % (1-7); LYMPHOCYTES # (AUTO) 1.82 x10^3/uL (1-3.4); LYMPHOCYTES % (AUTO) 15 % (22-44); MD NO; MEAN CORPUSCULAR HEMOGLOBIN 31.4 pg (27.0-34.8); MEAN CORPUSCULAR HGB CONC 34.3 g/dL (32.4-35.8); MEAN CORPUSCULAR VOLUME 91.7 fL (80-100); MEAN PLATELET VOLUME 6.8 fL (7.4-10.4); MONOCYTES % (AUTO) 6 % (2-9); NEUTROPHILS # (AUTO) 9.73 x10^3/uL (1.8-6.8); NEUTROPHILS % (AUTO) 79 % (42-75); PLATELET COUNT 484 x10^3/uL (130-400); RED BLOOD COUNT 4.76 x10^6/uL (3.82-5.3)
[2018-08-03 06:08] LABS: ALBUMIN 3.4 g/dL (3.4-5.0); ANION GAP 7 mmol/L (5-15); CALCIUM 9.5 mg/dL (8.5-10.1); CHLORIDE 102 mmol/L (98-107); CREATININE 0.55 mg/dL (0.55-1.02)
[2018-08-03] MEDS: METHOCARBAMOL 500 MG TABLET PO SCH ×2 (06:11→12:45)
[2018-08-03] MEDS: PANTOPROZOLE 40MG TABLET PO SCH (06:11)
[2018-08-03] MEDS: DEXAMETHASONE 4 MG/ML, 1ML IVPush SCH ×4 (06:11→20:12)
[2018-08-03 07:12] VITALS: BP 116/78
[2018-08-03] MEDS: SENNA/DOCUSATE TABLET PO SCH (09:00)
[2018-08-03] MEDS: CEFDINIR 300 MG CAPSULE PO SCH ×2 (09:30→20:13)
[2018-08-03] MEDS: metFORMIN 500 MG TABLET PO SCH ×2 (09:30→20:12)
[2018-08-03] MEDS: TAMSULOSIN 0.4 MG CAP.ER.24H PO SCH (09:30)
[2018-08-03] MEDS: LISINOPRIL 10 MG TABLET PO SCH (09:30)
[2018-08-03 14:00] VITALS: BP 113/78
[2018-08-03] MEDS: METHOCARBAMOL 750 MG TABLET PO SCH ×2 (17:06→20:12)
[2018-08-03 19:27] VITALS: BP 117/75
[2018-08-03] MEDS: ATORVASTATIN 10 MG TABLET PO SCH (20:13)
[2018-08-04 00:23] VITALS: BP 129/81
[2018-08-04] MEDS: DEXAMETHASONE 4 MG/ML, 1ML IVPush SCH ×4 (05:34→23:01)
[2018-08-04] MEDS: METHOCARBAMOL 750 MG TABLET PO SCH ×4 (05:34→20:54)
[2018-08-04] MEDS: PANTOPROZOLE 40MG TABLET PO SCH (05:34)
[2018-08-04 07:00] VITALS: BP 144/80
[2018-08-04] MEDS: SENNA/DOCUSATE TABLET PO SCH (09:00)
[2018-08-04] MEDS: LISINOPRIL 10 MG TABLET PO SCH (10:11)
[2018-08-04] MEDS: metFORMIN 500 MG TABLET PO SCH ×2 (10:12→20:54)
[2018-08-04] MEDS: TAMSULOSIN 0.4 MG CAP.ER.24H PO SCH (10:12)
[2018-08-04] MEDS: CEFDINIR 300 MG CAPSULE PO SCH ×2 (10:12→20:54)
[2018-08-04] MEDS ORDERED: HYDROmorphone 2MG TABLET PO PRN (10:30)
[2018-08-04 13:46] VITALS: BP 130/80
[2018-08-04 18:28] VITALS: BP 120/70
[2018-08-04] MEDS: ATORVASTATIN 10 MG TABLET PO SCH (20:55)
[2018-08-05 00:52] VITALS: BP 139/75
[2018-08-05] MEDS: PANTOPROZOLE 40MG TABLET PO SCH (05:39)
[2018-08-05] MEDS: DEXAMETHASONE 4 MG/ML, 1ML IVPush SCH ×2 (05:39→11:58)
[2018-08-05] MEDS: METHOCARBAMOL 750 MG TABLET PO SCH ×2 (05:39→11:57)
[2018-08-05 07:42] VITALS: BP 140/84
[2018-08-05] MEDS: TAMSULOSIN 0.4 MG CAP.ER.24H PO SCH (09:14)
[2018-08-05] MEDS: CEFDINIR 300 MG CAPSULE PO SCH (09:15)
[2018-08-05] MEDS: metFORMIN 500 MG TABLET PO SCH (09:15)
[2018-08-05] MEDS: SENNA/DOCUSATE TABLET PO SCH (09:15)
[2018-08-05] MEDS: LISINOPRIL 10 MG TABLET PO SCH (09:15)
[2018-08-05] MEDS ORDERED: DEXA4TAB66 PO (09:38)
[2018-08-05] MEDS ORDERED: METH750T87 PO (13:10)
== END 2018-08-05 14:02 | disposition home health service (06) | DRG 552 ==
LOC: ED 12:35 → EDIP 12:36 → ED 12:45 → 3NE 13:42
PROVIDERS: ADMIT Hospitalist; ATTEND Hospitalist
DX: M47.896 Other spondylosis, lumbar region (principal); N39.0 Urinary tract infection, site not specified; M62.838 Other muscle spasm; E11.9 Type 2 diabetes mellitus without complications; E66.9 Obesity, unspecified; Z68.31 Body mass index [BMI] 31.0-31.9, adult; E78.5 Hyperlipidemia, unspecified; G62.9 Polyneuropathy, unspecified; D47.3 Essential (hemorrhagic) thrombocythemia; G89.29 Other chronic pain; I10 Essential (primary) hypertension; K21.9 Gastro-esophageal reflux disease without esophagitis; Z79.84 Long term (current) use of oral hypoglycemic drugs; Z87.440 Personal history of urinary (tract) infections
CPT/HCPCS: 36415; 72110; 72158; 80048; 80053; 82040; 85025; 85651; 86140; 86141; 96365; 99285; A9585; G0378; J1100; J1170; J2800

== ENCOUNTER → 2018-08-31 | Outpatient (CLI) | payer OTHER ==
[~2018-08-31] MED LIST changes: +DEXA4TAB66 PO; +HYDR2TAB29 PO
[2018-08-31 15:39] LABS: BASOPHILS # (AUTO) 0.05 x10^3/uL (0-0.1); BASOPHILS % (AUTO) 1 % (0-1); EOSINOPHILS # (AUTO) 0.22 x10^3/uL (0-0.4); EOSINOPHILS % (AUTO) 3 % (1-7); LYMPHOCYTES # (AUTO) 2.16 x10^3/uL (1-3.4); LYMPHOCYTES % (AUTO) 24 % (22-44); MD NO; MEAN CORPUSCULAR HGB CONC 31.8 g/dL (32.4-35.8); MEAN CORPUSCULAR VOLUME 94.3 fL (80-100); MEAN PLATELET VOLUME 6.7 fL (7.4-10.4); MONOCYTES # (AUTO) 0.58 x10^3/uL (0.2-0.8); MONOCYTES % (AUTO) 7 % (2-9); NEUTROPHILS # (AUTO) 5.88 x10^3/uL (1.8-6.8); NEUTROPHILS % (AUTO) 66 % (42-75); PLATELET COUNT 429 x10^3/uL (130-400); RED CELL DISTRIBUTION WIDTH 14.1 % (9.6-15.2)
[2018-08-31 15:40] LABS: ALBUMIN 3.7 g/dL (3.4-5.0); ANION GAP 10 mmol/L (5-15); CALCIUM 9.4 mg/dL (8.5-10.1); CHLORIDE 105 mmol/L (98-107)
[2018-08-31 15:43] LABS: MICROSCOPIC AUTO
[2018-08-31 15:46] LABS: ALANINE AMINOTRANSFERASE 20 U/L (12-78); ALKALINE PHOSPHATASE 127 U/L (45-117); BILIRUBIN,TOTAL 0.5 mg/dL (0.2-1.0); CREATININE 0.54 mg/dL (0.55-1.02); TOTAL PROTEIN 7.6 g/dL (6.4-8.2)
[2018-08-31 15:49] LABS: CULTURE INDICATED? YES
[2018-08-31 16:00] LABS: INTERNATIONAL NORMALIZED RATIO 1.04 (0.93-1.1); PROTHROMBIN TIME 10.9 Seconds (9.6-11.5)
== END | disposition home or self-care (01) ==
LOC: STAR 14:36
PROVIDERS: ATTEND Orthopaedic Surgery Orthopaedic Surgery of the Spine
DX: Z01.818 Encounter for other preprocedural examination (principal); M48.061 Spinal stenosis, lumbar region without neurogenic claudication; M43.16 Spondylolisthesis, lumbar region
CPT/HCPCS: 36415; 80053; 81001; 85025; 85610; 85730; 87077; 87086; 87186

== ENCOUNTER 2018-09-05 05:50 | Inpatient (IN) | payer OTHER ==
[~2018-09-05] VITALS: Ht 170.2 cm; Wt 84.5 kg
[2018-09-05] MEDS ORDERED: LACTATED RINGERS 1,000 ML IV SCH (06:37)
[2018-09-05] MEDS ORDERED: FENTANYL PF 250 MCG/5ML ONE ×2 (06:41→09:23)
[2018-09-05] MEDS ORDERED: MIDAZOLAM 1 MG/ML, 2ML ONE (06:41)
[2018-09-05] MEDS ORDERED: PROMETHAZINE 12.5 MG SUPP PR PRN (07:00)
[2018-09-05] MEDS ORDERED: PROMETHAZINE 25 MG/ML, 1ML IM PRN ×3 (07:00→13:30)
[2018-09-05] MEDS ORDERED: MEPERIDINE/PF 25MG/0.5ML IVPush PRN (07:00)
[2018-09-05] MEDS ORDERED: ONDANSETRON 2MG/ML, 2ML IV PRN ×2 (07:00→13:30)
[2018-09-05] MEDS ORDERED: PROMETHAZINE 25 MG/ML, 1ML IV PRN (07:00)
[2018-09-05] MEDS ORDERED: SCOPOLAMINE PATCH, 1.5MG PATCH.TD72 TD ONE (07:00)
[2018-09-05] MEDS ORDERED: HALOPERIDOL 5 MG/ML IV PRN (07:00)
[2018-09-05] MEDS ORDERED: hydrALAzine 20 MG/ML, 1ML IV PRN (07:00)
[2018-09-05] MEDS ORDERED: GABAPENTIN 300 MG CAPSULE PO ONE (07:00)
[2018-09-05] MEDS ORDERED: LABETALOL 5MG/ML, 20ML IV PRN (07:00)
[2018-09-05] MEDS ORDERED: HYDROmorphone 2 MG/ML, 1ML IVPush PRN (07:00)
[2018-09-05] MEDS ORDERED: PROMETHAZINE 25 MG SUPP PR PRN (07:00)
[2018-09-05] MEDS ORDERED: ACETAMINOPHEN 500 MG TABLET PO ONE (07:00)
[2018-09-05] MEDS ORDERED: TOBRAMYCIN SULFATE 1.2 GM IMP ONE (07:05)
[2018-09-05] MEDS ORDERED: THROMBIN 5,000 UNIT VIAL TP ONE (07:05)
[2018-09-05] MEDS ORDERED: VANCOMYCIN 1,000 MG ONE (07:05)
[2018-09-05] MEDS ORDERED: BUPIVACAINE/PF 0.25% ONE (07:05)
[2018-09-05] MEDS ORDERED: LIDOCAINE/PF 0.5% ,50ML ONE (07:05)
[2018-09-05] MEDS ORDERED: EPINEPHRINE 1 MG/ML, 1ML ONE (07:05)
[2018-09-05] MEDS ORDERED: PHENYLEPHRINE 10 MG/ML ONE (07:42)
[2018-09-05] MEDS ORDERED: BUPIVACAINE/PF 0.25% INFIL ONE (08:29)
[2018-09-05] MEDS ORDERED: GLYCOPYRROLATE 0.2MG/1ML, 5ML ONE (09:30)
[2018-09-05] MEDS ORDERED: PROPOFOL 10 MG/ML, 20ML ONE (09:30)
[2018-09-05] MEDS ORDERED: ONDANSETRON 2MG/ML, 2ML ONE (09:30)
[2018-09-05] MEDS ORDERED: NEOSTIGMINE 1 MG/ML, 10ML ONE (09:30)
[2018-09-05] MEDS ORDERED: CEFAZOLIN 1,000 MG ONE (09:30)
[2018-09-05] MEDS ORDERED: ROCURONIUM 10MG/ML,5ML ONE (09:30)
[2018-09-05] MEDS ORDERED: VANCOMYCIN 1,000 MG IM ONE (09:45)
[2018-09-05] MEDS ORDERED: FENTANYL PF 100 MCG/2ML ONE ×2 (10:52→11:19)
[2018-09-05] MEDS: FENTANYL PF 100 MCG/2ML IV PRN ×4 (10:54→11:59)
[2018-09-05] MEDS ORDERED: OXYcodone 5 MG/5 ML ORAL.SOL UDC ONE ×2 (11:19→12:18)
[2018-09-05] MEDS: OXYcodone 5 MG/5 ML ORAL.SOL UDC PO PRN ×2 (11:21→12:19)
[2018-09-05] MEDS ORDERED: MORPHINE SULFATE 4 MG/ML, 1ML ONE ×2 (12:00→12:18)
[2018-09-05] MEDS: MORPHINE SULFATE 4 MG/ML, 1ML IVPush PRN ×2 (12:02→12:21)
[2018-09-05] MEDS ORDERED: METHOCARBAMOL 1,000 MG in DEXTROSE 5% 100 ML IV ONE (12:30)
[2018-09-05 12:50] VITALS: BP 106/70
[2018-09-05] MEDS ORDERED: BISACODYL 10 MG SUPP PR PRN (13:30)
[2018-09-05] MEDS ORDERED: HYDROmorphone 2 MG/ML, 1ML IM PRN (13:30)
[2018-09-05] MEDS ORDERED: HYDROcodone/APAP 5/325 TABLET PO PRN (13:30)
[2018-09-05] MEDS ORDERED: MAGNESIUM HYDROXIDE 8%, 30ML UDC PO PRN (13:30)
[2018-09-05] MEDS ORDERED: HYDROmorphone 2MG TABLET PO PRN (14:00)
[2018-09-05] MEDS: NS + 20MEQ KCL 1,000 ML IV SCH (14:58)
[2018-09-05] MEDS: CEFAZOLIN PMX 1GM/50ML 50 ML IVPB SCH (16:15)
[2018-09-05] MEDS: metFORMIN 500 MG TABLET PO SCH (17:06)
[2018-09-05] MEDS: DOCUSATE 100 MG CAPSULE PO SCH ×2 (17:06→20:44)
[2018-09-05] MEDS: HYDROmorphone 2MG TABLET PO PRN (18:59)
[2018-09-05 20:00] VITALS: BP 95/68
[2018-09-05] MEDS: GLIMEPIRIDE 4 MG TABLET PO SCH (20:43)
[2018-09-05] MEDS: ATORVASTATIN 10 MG TABLET PO SCH (20:44)
[2018-09-05] MEDS: SENNA/DOCUSATE TABLET PO SCH (20:48)
[2018-09-06] MEDS: CEFAZOLIN PMX 1GM/50ML 50 ML IVPB SCH (00:10)
[2018-09-06] MEDS: NS + 20MEQ KCL 1,000 ML IV SCH ×3 (00:10→19:55)
[2018-09-06 00:33] VITALS: BP 108/71
[2018-09-06] MEDS: HYDROmorphone 2MG TABLET PO PRN ×2 (01:30→09:38)
[2018-09-06 04:10] VITALS: BP 115/76
[2018-09-06] MEDS: DOCUSATE 100 MG CAPSULE PO SCH ×4 (05:39→19:44)
[2018-09-06 07:49] VITALS: BP 119/75
[2018-09-06] MEDS: metFORMIN 500 MG TABLET PO SCH ×2 (08:11→16:27)
[2018-09-06] MEDS: GLIMEPIRIDE 4 MG TABLET PO SCH ×2 (08:11→19:44)
[2018-09-06] MEDS: SENNA/DOCUSATE TABLET PO SCH ×2 (08:11→19:44)
[2018-09-06] MEDS: LISINOPRIL 10 MG TABLET PO SCH (08:12)
[2018-09-06 14:00] VITALS: BP 101/67
[2018-09-06 19:35] VITALS: BP 110/70
[2018-09-06] MEDS: ATORVASTATIN 10 MG TABLET PO SCH (19:44)
[2018-09-07 00:30] VITALS: BP 94/67
[2018-09-07] MEDS: DOCUSATE 100 MG CAPSULE PO SCH ×4 (05:12→19:37)
[2018-09-07 07:27] VITALS: BP 105/71
[2018-09-07] MEDS: GLIMEPIRIDE 4 MG TABLET PO SCH ×2 (08:06→19:37)
[2018-09-07] MEDS: LISINOPRIL 10 MG TABLET PO SCH (08:06)
[2018-09-07] MEDS: metFORMIN 500 MG TABLET PO SCH ×2 (08:06→16:19)
[2018-09-07] MEDS: SENNA/DOCUSATE TABLET PO SCH ×2 (08:06→19:37)
[2018-09-07] MEDS: NS + 20MEQ KCL 1,000 ML IV SCH (13:15)
[2018-09-07] MEDS: HYDROcodone/APAP 10/325 MG TABLET PO PRN ×3 (13:15→23:26)
[2018-09-07 14:03] VITALS: BP 99/66
[2018-09-07 19:04] VITALS: BP 100/68
[2018-09-07] MEDS: ATORVASTATIN 10 MG TABLET PO SCH (19:37)
[2018-09-08] MEDS: NS + 20MEQ KCL 1,000 ML IV SCH ×3 (00:11→20:00)
[2018-09-08 00:19] VITALS: BP 104/71
[2018-09-08] MEDS: HYDROcodone/APAP 10/325 MG TABLET PO PRN ×4 (03:40→22:14)
[2018-09-08] MEDS: DOCUSATE 100 MG CAPSULE PO SCH ×4 (06:19→22:14)
[2018-09-08] MEDS: metFORMIN 500 MG TABLET PO SCH ×2 (08:13→16:48)
[2018-09-08] MEDS: LISINOPRIL 10 MG TABLET PO SCH (08:14)
[2018-09-08] MEDS: GLIMEPIRIDE 4 MG TABLET PO SCH ×2 (08:14→22:14)
[2018-09-08] MEDS: SENNA/DOCUSATE TABLET PO SCH ×2 (08:14→22:17)
[2018-09-08 08:18] VITALS: BP 112/73
[2018-09-08 14:55] VITALS: BP 125/73
[2018-09-08 19:14] VITALS: BP 110/69
[2018-09-08] MEDS: ATORVASTATIN 10 MG TABLET PO SCH (22:14)
[2018-09-09 01:59] VITALS: BP 122/76
[2018-09-09] MEDS: HYDROcodone/APAP 10/325 MG TABLET PO PRN ×4 (04:15→21:18)
[2018-09-09] MEDS: DOCUSATE 100 MG CAPSULE PO SCH ×4 (04:17→21:18)
[2018-09-09] MEDS: NS + 20MEQ KCL 1,000 ML IV SCH ×2 (06:00→16:05)
[2018-09-09 07:10] VITALS: BP 134/85
[2018-09-09] MEDS: metFORMIN 500 MG TABLET PO SCH ×2 (08:31→16:05)
[2018-09-09] MEDS: GLIMEPIRIDE 4 MG TABLET PO SCH ×2 (08:32→21:18)
[2018-09-09] MEDS: LISINOPRIL 10 MG TABLET PO SCH (08:32)
[2018-09-09] MEDS: SENNA/DOCUSATE TABLET PO SCH ×2 (08:32→21:17)
[2018-09-09] MEDS: DEXAMETHASONE 4 MG/ML, 1ML IV SCH ×3 (11:36→23:51)
[2018-09-09 13:05] VITALS: BP 128/78
[2018-09-09] MEDS: GABAPENTIN 300 MG CAPSULE PO SCH ×2 (16:05→21:18)
[2018-09-09 20:02] VITALS: BP_SYST 115
[2018-09-09] MEDS: ATORVASTATIN 10 MG TABLET PO SCH (21:18)
[2018-09-10] MEDS: HYDROcodone/APAP 10/325 MG TABLET PO PRN ×3 (01:55→11:47)
[2018-09-10] MEDS: NS + 20MEQ KCL 1,000 ML IV SCH ×2 (02:00→12:56)
[2018-09-10 02:13] VITALS: BP 149/84
[2018-09-10] MEDS: DOCUSATE 100 MG CAPSULE PO SCH ×2 (05:59→11:03)
[2018-09-10 07:39] VITALS: BP 123/76
[2018-09-10] MEDS: metFORMIN 500 MG TABLET PO SCH (07:46)
[2018-09-10] MEDS: GLIMEPIRIDE 4 MG TABLET PO SCH (07:46)
[2018-09-10] MEDS: SENNA/DOCUSATE TABLET PO SCH (07:46)
[2018-09-10] MEDS: GABAPENTIN 300 MG CAPSULE PO SCH (07:46)
[2018-09-10] MEDS: LISINOPRIL 10 MG TABLET PO SCH (07:46)
[2018-09-10] MEDS ORDERED: HYDR-3307 PO (13:22)
[2018-09-10 13:35] VITALS: BP 120/80
== END 2018-09-10 14:05 | disposition home health service (06) | DRG 458 ==
LOC: ORIP 05:50 → 4NOR 12:46 → DCLOUNGE 09-10 13:56
PROVIDERS: ADMIT Orthopaedic Surgery Orthopaedic Surgery of the Spine; ATTEND Orthopaedic Surgery Orthopaedic Surgery of the Spine
PROC: 0SG10K1 Fusion of 2 or more Lumbar Vertebral Joints with Nonautologous Tissue Substitute, Posterior Approach, Posterior Column, Open Approach (ICD-10-PCS; principal; 2018-09-05 07:30)
DX: M41.86 Other forms of scoliosis, lumbar region (principal); E78.5 Hyperlipidemia, unspecified; E11.9 Type 2 diabetes mellitus without complications; I10 Essential (primary) hypertension; G89.29 Other chronic pain; Z79.899 Other long term (current) drug therapy; Z90.49 Acquired absence of other specified parts of digestive tract
CPT/HCPCS: 36415; 72100; 73552; J3260; 82962; 85730; 86850; 86900; C1713; G0378; J0171; J0690; J1100; J2001; J2250; J2270; J2405; J2704; J2710; J3010; J3370; J3480; J3490; C1762; J2370; J2800; J7120